=== PATIENT | male | born 1980 | race Caucasian/White ===

== ENCOUNTER 2020-07-01 18:30 | Emergency (ER) | payer MEDICAID ==
[~2020-07-01] VITALS: Ht 162.6 cm; Wt 65.8 kg
[2020-07-01 18:40] VITALS: BP_SYST 129
--- NOTE | 2020-07-01 18:40 | NUR ---
Patient to [facility] for evaluation.
--- NOTE | 2020-07-01 18:43 | NUR ---
Patient brought in by police manager in the ED for medical clearance, c/o LFA and right index finger pain. Denied any chest pain or shortness of breath. Denied any fevers, chills, nausea or vomiting. Patient is alert and oriented x4, respirations even and unlabored, speaking in full sentences, and ambulating with a steady gait. VSS, pain level 4/10. physics technical officer at bedside. Informed of the approximate wait time. Instructed to notify ED staff for any changes in condition or worsening of symptoms while waiting to be seen by an ED provider. Patient verbalized understanding.
--- NOTE | 2020-07-01 18:56 | NUR ---
ER Dr. Freeman at bedside examining patient.
[2020-07-01 20:13] VITALS: BP_SYST 126
--- NOTE | 2020-07-01 20:13 | NUR ---
Patient given written and verbal discharge instructions and verbalizes understanding. ER MD discussed with patient the results and treatment provided. Patient in stable condition. ID arm band removed. Rx of BACTRIM AND KEFLEX given. Patient educated on pain management and to follow up with PMD. Pain Scale 0/10. Opportunity for questions provided and answered. Medication side effect fact sheet provided.
== END 2020-07-01 20:13 ==
LOC: SED 18:30
DX: S52.592A Other fractures of lower end of left radius, initial encounter for closed fracture (principal); L03.012 Cellulitis of left finger; W22.8XXA Striking against or struck by other objects, initial encounter; Y93.89 Activity, other specified; Y92.89 Other specified places as the place of occurrence of the external cause; Y99.8 Other external cause status
CPT/HCPCS: 73090; 99284